=== PATIENT | male | born 1985 | race Caucasian/White ===

== ENCOUNTER 2018-11-26 11:01 | Emergency (ER) | payer BC ==
[2018-11-26] MEDS ORDERED: Adacel Vial IM ONE ×2 (11:13→11:21)
--- NOTE | 2018-11-26 11:13 | ERPHSYRPT ---
- History of Present Illness Time Seen by Provider: 11/26/18 11:09 Source: patient Exam Limitations: no limitations Physician History: 33 y/o right handed white male presents with painful, swollen and bruised left hand. pt accidentally hit his left hand while using a sledgehammer. small break in skin present. tetanus status not utd. Occurred: days ago (3) Method of Injury: direct blow (by a sledgehammer) Quality: aching Extremities Pain Location: hand: left Modifying Factors: Improves With: movement (aches) Associated Symptoms: none Allergies/Adverse Reactions: No Known Drug Allergies Allergy (Verified 04/25/13 04:56) Hx Tetanus, Diphtheria Vaccination/Date Given: Yes Hx Influenza Vaccination/Date Given: No Hx Pneumococcal Vaccination/Date Given: No - Review of Systems Constitutional: No Symptoms Eyes: No Symptoms Ears, Nose, & Throat: No Symptoms Respiratory: No Symptoms Cardiac: No Symptoms Abdominal/Gastrointestinal: No Symptoms Genitourinary Symptoms: No Symptoms Musculoskeletal: No Symptoms Skin: No Symptoms Neurological: No Symptoms Psychological: No Symptoms Endocrine: No Symptoms Hematologic/Lymphatic: No Symptoms Immunological/Allergic: No Symptoms All Other Systems: Reviewed and Negative - Past Medical History Pertinent Past Medical History: No Neurological History: No Pertinent History ENT History: No Pertinent History Cardiac History: No Pertinent History Respiratory History: No Pertinent History Endocrine Medical History: No Pertinent History Musculoskeletal History: No Pertinent History GI Medical History: No Pertinent History History: No Pertinent History Psycho-Social History: No Pertinent History Male Reproductive Disorders: No Pertinent History - Past Surgical History Past Surgical History: No Neuro Surgical History: No Pertinent History Cardiac: No Pertinent History Respiratory: No Pertinent History Gastrointestinal: No Pertinent History Genitourinary: No Pertinent History Musculoskeletal: No Pertinent History Male Surgical History: No Pertinent History - Social History Smoking Status: Current every day smoker How long have you smoked: 10 yrs Exposure to second hand smoke: No Drug Use: none Patient Lives Alone: No - Nursing Vital Signs Nursing Vital Signs: Initial Vital Signs Temperature 97.8 F 11/26/18 11:12 Pulse Rate 71 11/26/18 11:12 Respiratory Rate 16 11/26/18 11:12 Blood Pressure 136/88 11/26/18 11:12 O2 Sat by Pulse Oximetry 97 11/26/18 11:12 Pain Scale Pain Intensity 2 - Physical Exam General Appearance: no apparent distress, alert Eyes, Ears, Nose, Throat Exam: normal ENT inspection, moist mucous membranes Neck Exam: normal inspection, non-tender, supple, full range of motion Cardiovascular/Respiratory Exam: chest non-tender Abdominal Exam: non-tender Back Exam: normal inspection, normal range of motion, No CVA tenderness, No vertebral tenderness Shoulder Exam: normal inspection, non-tender, no evidence of injury, normal ROM Elbow/Forearm Exam: normal inspection, non-tender, no evidence of injury, normal ROM Wrist Exam: normal inspection, non-tender, no evidence of injury, normal ROM Hand Exam: normal ROM, abrasions (dorsal aspect of left hand), ecchymosis, soft tissue tenderness, swelling (dorsal aspect left hand) Skin Exam: abrasion (dorsal aspect left hand) SpO2 Interpretation: normal O2 Delivery: Room Air - Course Nursing assessment & vital signs reviewed: Yes Ordered Tests: Active Orders 24 hr Category Date Time Status HAND (MINIMUM 3 VIEWS) Stat Exams 11/26/18 11:13 Completed Medication Summary Discontinued Medications Generic Name Dose Route Start Last Admin Trade Name Valenteq PRN Reason Stop Dose Admin Diphtheria/Tetanus/Acell Pertussis 0.5 ml 11/26/18 11:13 11/26/18 11:23 Adacel Vial IM 11/26/18 11:14 0.5 ml .ONCE ONE Administration Diphtheria/Tetanus/Acell Pertussis Confirm 11/26/18 11:21 Adacel Vial Administered 11/26/18 11:22 Dose 0.5 ml IM .STK-MED ONE - Progress Progress: unchanged Progress Note: 11/26/18 11:45 xray left hand-no acute fx or dislocation Counseled pt/family regarding: diagnosis, need for follow-up, rad results - Departure Departure Disposition: Home Clinical Impression: Contusion of left hand Condition: Stable Critical Care Time: No Referrals: JEAN CLAUDE SHIELDS [Primary Care Provider] - Additional Instructions: ice pack to area 3 times daily for 3 days. add ibuprofen and tylenol for pain.
[2018-11-26 11:18] VITALS: BP 136/88; PULSE 71; O2SAT 97
--- NOTE | 2018-11-26 11:43 | XRAY ---
Indication: 2nd metacarpal pain/bruising following injury. Comparison: None 3 views of left hand obtained. No bony, articular, or soft tissue abnormalities.
== END 2018-11-26 12:06 | disposition home or self-care (01) ==
LOC: ED 11:01
DX: S60.222A Contusion of left hand, initial encounter (principal); M79.642 Pain in left hand; W22.8XXA Striking against or struck by other objects, initial encounter
CPT/HCPCS: 73130; 90471; 90715; 99283